=== PATIENT | male | born 1995 | race African-American/Black ===

== ENCOUNTER 2017-05-26 23:51 | Emergency (ER) | payer OTHER ==
[2017-05-26 23:57] VITALS: BP 128/65
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
[2017-05-27 01:42] LABS: Hematocrit 42 % (42-52); Hemoglobin 14.1 g/dl (14.0-18.0); Mean Corpuscular HGB Conc 34 g/dl (31-36); Mean Corpuscular Hemoglobin 32 pg (27-31); Mean Corpuscular Volume 97 fL (80-94); Mean Platelet Volume 9 um3 (7.4-10.4); Red Blood Count 4.37 10^6/ul (4.0-5.4); Red Cell Distribution Width 12 % (10.5-15); White Blood Count 13.1 10^3/ul (3.5-10.8)
[2017-05-27 02:03] LABS: Manual Entry Verification ROB0080; Mono Internal Control QC Line Present
[2017-05-27 02:10] LABS: Albumin 4.2 g/dL (3.2-5.2); BUN/Creatinine Ratio 16.8 (8-20); Calcium 9.3 mg/dL (8.6-10.3); EGFR African American 93.8 (>60); EGFR Non-African American 72.9 (>60); Globulin 2.5 g/dL (2-4); Magnesium 1.8 mg/dL (1.9-2.7); Potassium 3.6 mmol/L (3.5-5.0); Total Bilirubin 1.1 mg/dL (0.2-1.0); Total Protein 6.7 g/dL (6.4-8.9)
[2017-05-27 02:21] LABS: TSH (Thyroid Stimulating Horm) 1.2 mcIU/mL (0.34-5.60)
[2017-05-27] MEDS ORDERED: NS 0.9% 1000 ML* 1,000 ML IV ONE (02:38)
--- NOTE | 2017-05-27 07:49 | RAD ---
INDICATION: Fever. COMPARISON: Comparison is made of a prior chest x-ray study from July 04, 2014. TECHNIQUE: Dual-energy PA and lateral views of the chest were obtained. FINDINGS: The heart is within normal limits in size. Mediastinal and hilar contours appear within normal limits. The lungs are clear. No pleural effusion is present. IMPRESSION: NO EVIDENCE FOR ACTIVE CARDIOPULMONARY DISEASE.
== END 2017-05-27 04:25 ==
LOC: ED 23:51
DX: R50.9 Fever, unspecified (principal); E86.0 Dehydration; J02.9 Acute pharyngitis, unspecified; R19.7 Diarrhea, unspecified; R51 Headache; R06.02 Shortness of breath
CPT/HCPCS: 36415; 71020; 80053; 83735; 84443; 85025; 86308; 87502; 87651; 99282

== ENCOUNTER 2019-05-08 12:01 | Emergency (ER) | payer OTHER ==
[2019-05-08 14:17] VITALS: BP 143/56
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
== END 2019-05-08 14:15 | disposition home or self-care (01) ==
LOC: MERGE 12:01 → ED 12:01
DX: S80.11XA Contusion of right lower leg, initial encounter (principal); M79.642 Pain in left hand; X58.XXXA Exposure to other specified factors, initial encounter; Y93.75 Activity, martial arts; Z88.0 Allergy status to penicillin
CPT/HCPCS: 99282

== ENCOUNTER 2019-09-28 10:24 | Emergency (ER) | payer OTHER ==
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
--- NOTE | 2019-09-28 10:58 | ED ---
Back Pain - HPI Summary HPI Summary: 23 year old male presents to the ED with a chief complaint of lower back pain starting 2 days ago secondary to a fall. Patient was practicing [employer] 2 days ago when he did a jump kick and landed on his buttocks, on his friend's foot. His pain is 2/10 and aching at rest and 6/10 and sharp when bending down or backwards. Pt denies any fever, chills, erythema of eyes, sore throat, CP, SOB, cough, abdominal pain, N/V, dysuria, hematuria, edema, rash, paresthesia, numbness, or dizziness. - History of Current Complaint Chief Complaint: EDBackInjuryPain Stated Complaint: POSS TAILBONE INJ PER PT Time Seen by Provider: 09/28/19 10:36 Hx Obtained From: Patient Onset/Duration: Sudden Onset, Still Present, Worse Since - accident Onset/Duration: Started Days Ago, Traumatic, Still Present Timing: Constant Back Pain Location: Is Discrete @ - coccyx Severity Initially: Severe Severity Currently: Moderate Pain Intensity: 6 Pain Scale Used: 0-10 Numeric Character: Sharp - while bending back, Aching - rest Aggravating Symptom(s): Movement, Bending Alleviating Symptom(s): Rest Associated Signs And Symptoms: Negative: Numbness, Tingling - Allergies/Home Medications Allergies/Adverse Reactions: Allergies Allergy/AdvReac Type Severity Reaction Status Date / Time amoxicillin Allergy Rash Verified 09/28/19 10:34 egg Allergy Vomiting Verified 09/28/19 10:34 Home Medications: Home Medications NK [No Home Medications Reported] 09/28/19 [History Confirmed 09/28/19] PMH/Surg Hx/FS Hx/Imm Hx Endocrine/Hematology History: Denies: Hx Diabetes, Hx Thyroid Disease Cardiovascular History: Denies: Hx Congenital Heart Disease, Hx Hypertension Respiratory History: Reports: Hx Asthma - child Denies: Hx Chronic Obstructive Pulmonary Disease (COPD) GI History: Denies: Hx Ulcer Musculoskeletal History: Reports: Other Musculoskeletal History - RIGHT THUMB FRACTURE 06/05/16 Denies: Hx Rheumatoid Arthritis, Hx Osteoporosis Sensory History: Denies: Hx Contacts or Glasses, Hx Hearing Aid Opthamlomology History: Denies: Hx Contacts or Glasses - Surgical History Surgery Procedure, Year, and Place: INCARERATED UMBILICAL HERNIA 2013. LEFT FOREARM FX NO SURGERY Hx Anesthesia Reactions: No Infectious Disease History: No Infectious Disease History: Denies: Hx Clostridium Difficile, Hx Hepatitis, Hx Human Immunodeficiency Virus (HIV), Hx of Known/Suspected MRSA, Hx Shingles, Hx Tuberculosis, Hx Known/ Suspected VRE, Hx Known/Suspected VRSA, History Other Infectious Disease, Traveled Outside the [place] in Last 30 Days - Family History Known Family History: Positive: None - no family history of heart disease., Diabetes - grandparents - Social History Alcohol Use: None Hx Substance Use: No Substance Use Type: Reports: None Hx Tobacco Use: No Smoking Status (MU): Never Smoked Tobacco Review of Systems Negative: Fever, Chills Negative: Erythema Negative: Sore Throat Negative: Chest Pain Negative: Shortness Of Breath, Cough Negative: Abdominal Pain, Diarrhea, Nausea Negative: dysuria, hematuria Positive: Arthralgia, Myalgia Negative: Rash Neurological: Negative - neg - dizziness Negative: Paresthesia, Numbness All Other Systems Reviewed And Are Negative: Yes Physical Exam - Summary Physical Exam Summary: Constitutional: Well-developed, Well-nourished, Alert. (-) Distressed Skin: Warm, Dry HENT: Normocephalic; Atraumatic Eyes: Conjunctiva normal Neck: Musculoskeletal ROM normal neck. (-) JVD, (-) Stridor, (-) Tracheal deviation Cardio: Rhythm regular, rate normal, Heart sounds normal; Intact distal pulses; Radial pulses are 2+ and symmetric. (-) Murmur Pulmonary/Chest wall: Effort normal. (-) Respiratory distress, (-) Wheezes, (-) Rales Abd: Soft, (-) tenderness, (-) Distension, (-) Guarding, (-) Rebound Musculoskeletal: (-) Edema Lymph: (-) Cervical adenopathy Neuro: Alert, Oriented x3. Straight leg raise negative. 5/5 leg strength bilaterally. Tenderness over coccyx. Psych: Mood and affect Normal Triage Information Reviewed: Yes Vital Signs On Initial Exam: Initial Vitals Temp Pulse Resp BP Pulse Ox 99.1 F 45 16 124/68 98 09/28/19 10:32 09/28/19 10:32 09/28/19 10:32 09/28/19 10:32 09/28/19 10:32 Vital Signs Reviewed: Yes Procedures - Sedation Patient Received Moderate/Deep Sedation with Procedure: No Diagnostics - Vital Signs Vital Signs Temp Pulse Resp BP Pulse Ox 09/28/19 10:32 99.1 F 45 16 124/68 98 - Laboratory Lab Statement: Any lab studies that have been ordered have been reviewed, and results considered in the medical decision making process. - Radiology Sacrum and Coccyx XR Radiology Interpretation Completed By: Radiologist Summary of Radiographic Findings: IMPRESSION: NO EVIDENCE OF FRACTURE. IF THE PATIENT'S SYMPTOMS PERSIST CONSIDER FOLLOW UP. An ED physician has reviewed this report. Back Pain Course/Dx - Course Course Of Treatment: 23 year old male presents to the ED with a chief complaint of lower back pain starting 2 days ago secondary to a fall. Patient was practicing [employer] 2 days ago when he did a jump kick and landed on his buttocks, on his friend's foot. His pain is 2/10 and aching at rest and 6/10 and sharp when bending down or backwards. Pt denies any fever, chills, erythema of eyes, sore throat, CP, SOB, cough, abdominal pain, N/V, dysuria, hematuria, edema, rash, paresthesia, numbness, or dizziness. Straight leg test negative, 5 /5 leg strength bilaterally, and tenderness over coccyx. SACRUM AND COCCYX XR IMPRESSION: NO EVIDENCE OF FRACTURE. IF THE PATIENT'S SYMPTOMS PERSIST CONSIDER FOLLOW UP. Diagnosis is coccyx contusion. Patient will be discharged home with follow up from PCP in 2-3 days. I recommended pain cream and a donut pillow, purchasable from his local pharmacy. The patient is agreeable with this plan. - Diagnoses Provider Diagnoses: Coccyx contusion Discharge ED - Sign-Out/Discharge Documenting (check all that apply): Patient Departure - Home - Discharge Plan Condition: Stable Disposition: HOME Patient Education Materials: Coccyx Injury (ED) Referrals: Jono Dixon DO [Primary Care Provider] - Additional Instructions: Follow up with your primary care provider in 2-3 days. 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 Return to the emergency department if you experience new or worsened symptoms. - Attestation Statements Document Initiated by Scribe: Yes Documenting Scribe: Greg Perez Provider For Whom Evelyne is Documenting (Include Credential): Melvin Cast MD. Scribe Attestation: Greg Marin scribed for Melvin Cast MD. on 09/28/19 at 1222. Status of Scribe Document: Ready
[2019-09-28 12:35] VITALS: BP 146/71
== END 2019-09-28 12:31 | disposition home or self-care (01) ==
LOC: ED 10:24
DX: S30.0XXA Contusion of lower back and pelvis, initial encounter (principal); W18.39XA Other fall on same level, initial encounter; Y93.75 Activity, martial arts; Y92.9 Unspecified place or not applicable; Z88.0 Allergy status to penicillin; Z91.012 Allergy to eggs
CPT/HCPCS: 72220; 99282